=== PATIENT | male | born 1990 | race Caucasian/White ===

== ENCOUNTER 2022-11-18 14:45 | Inpatient (IN) | payer SELFPAY ==
--- NOTE | 2022-11-18 14:50 | ED.C_ITS ---
HPI - Psych General: Chief Complaint: Psychiatric Symptoms Stated Complaint: depression Time Seen by Provider: 11/18/22 14:49 History of Present Illness: Mr Noyola is a 32-year-old gentleman with history of apparently depression and longstanding history of alcohol abuse presenting the emergency department for worsening depression. He drinks between a sixpack and a fifth/day. He was last in rehab about 3 months ago however immediately started drinking after he checked himself out. He reports increased social stressors. His has left him and took the kids. He describes chronic feeling of hopelessness and just wanting everything to be over. He denies specific suicidal or homicidal ideation however certainly has a significant degree of passive thoughts. Denies actual attempts at self injury. No other specific changes in health, exacerbating, or alleviating factors identified. History of same: Yes Context: recent alcohol abuse Associated psychiatric symptoms: depression and other Review of Systems General: Reports: 10 or more systems reviewed and unremarkable except in HPI and below PFSH ED PFSH: Medical History Alcohol abuse Social History (Updated 11/18/22 @ 15:06 by Fermin Soriano MD) Alcohol intake: current Physical Exam Const: COMMON NORMALS: alert GENERAL APPEARANCE: cooperative and well developed HENMT: COMMON NORMALS: normocephalic and atraumatic HEAD & SCALP: normocephalic and atraumatic THROAT: posterior oropharynx normal Eye: COMMON NORMALS: conjunctivae normal CONJUNCTIVA: Yes conjunctivae normal SCLERA: sclerae normal Neck/C-Spine: COMMON NORMALS: supple GENERAL: Yes trachea midline Resp: COMMON NORMALS: clear to auscultation bilaterally EFFORT & INSPECTION: Yes able to speak in complete sentences AUSCULTATION: clear to auscultation bilaterally Cardio: COMMON NORMALS: regular rate and regular rhythm RATE: regular rate RHYTHM: regular rhythm GI: COMMON NORMALS: Soft to palpation PALPATION: Yes Soft to palpation and No Tenderness to palpation present (GI) Extremity: GENERAL: Yes normal exam except as noted and No edema Neuro: COMMON NORMALS: moves all extremities SENSORIUM/ORIENTATION: Yes alert and No Orientation impaired Psych: MOOD & AFFECT: Yes depressed mood and Yes tearful Course Vital Signs: Vital signs: Vital Signs Temperature 98.4 F 11/19/22 14:32 Pulse Rate 101 H 11/19/22 14:32 Respiratory Rate 16 11/19/22 14:32 Blood Pressure 136/85 11/19/22 14:32 Pulse Oximetry 98 11/19/22 14:32 Oxygen Delivery Me thod Room Air 11/18/22 22:00 MDM - Psych Medical Decision Making 32-year-old male presenting with alcohol use and depression. He is tearful and depressed. The is not cooperative answering questions at times including that he will not deny or endorse suicidal ideation. Labs with likely hemoconcentration. Alcohol level elevated. No indication for imaging. Patient placed on 96-hour hold. He endorses not wanting to live and longstanding history of emotional pain. He feels hopeless. He has had increased social stressors regarding relationship. He also endorses recent alcohol abuse as well as longstanding history of chronic alcohol abuse. These factors increase patient's risk for self-harm with lethality. Based on ED evaluation at this point there is no obvious condition that would preclude the patient from inpatient management of psychiatric concerns/symptoms. Discussed with psychiatry service and patient admitted under 96-hour hold. Medical Records I reviewed the patient's medical records. Lab Data I reviewed the patient's lab results. 11/18/22 15:41 11/18/22 15:41 Laboratory Results WBC 10.2 10^3/uL (4.0-10.0) H 11/18/22 15:41 RBC 6.29 10^6/uL (4.1-5.3) H 11/18/22 15:41 Hgb 19.7 g/dL (11.7-16.6) H 11/18/22 15:41 Hct 56.6 % (42.0-52.0) H 11/18/22 15:41 MCV 90.0 fl (80-94) 11/18/22 15:41 MCH 31.3 pg (28.0-34.0) 11/18/22 15:41 MCHC 34.8 g/dL (30.0-36.0) 11/18/22 15:41 RDW 13.9 % (12.1-15.1) 11/18/22 15:41 Plt Count 327 10^3/cmm (130-400) 11/18/22 15:41 MPV 9.7 fL (7.4-10.4) 11/18/22 15:41 Neut % (Auto) 60.5 % 11/18/22 15:41 Lymph % (Auto) 31.6 % 11/18/22 15:41 [place] % (Auto) 6.1 % 11/18/22 15:41 Eos % (Auto) 0.8 % 11/18/22 15:41 Baso % (Auto) 0.6 % 11/18/22 15:41 Neut # (Auto) 6.16 10^3/uL (1.8-7.7) 11/18/22 15:41 Lymph # (Auto) 3.2 10^3/uL (0.8-4.8) 11/18/22 15:41 [place] # (Auto) 0.6 10^3/uL (0.2-0.9) 11/18/22 15:41 Eos # (Auto) 0.1 10^3/uL (0.0-0.8) 11/18/22 15:41 Baso # (Auto) 0.1 10^3/uL (0.0-0.1) 11/18/22 15:41 Nucleated RBC % (auto) 0 % 11/18/22 15:41 Nucleated RBCs # 0.0 /100WBC 11/18/22 15:41 Sodium 142 mmol/L (136-145) 11/18/22 15:41 Potassium 4.1 mmol/L (3.5-5.1) 11/18/22 15:41 Chloride 101 mmol/L (98-107) 11/18/22 15:41 Carbon Dioxide 25 mmol/L (22-29) 11/18/22 15:41 Anion Gap 20.1 (5-19) H 11/18/22 15:41 BUN 7 mg/dL (6-20) 11/18/22 15:41 Creatinine 0.8 mg/dL (0.7-1.2) 11/18/22 15:41 GFR Calculation 110.7 mL/min (90-130) 11/18/22 15:41 Glucose 92 mg/dL (65-115) 11/18/22 15:41 Calculated Osmolality 292 mOsm/kg (285-295) 11/18/22 15:41 Calcium 9.1 mg/dL (8.5-10.5) 11/18/22 15:41 Total Bilirubin 0.4 mg/dL (0.15-1.2) 11/18/22 15:41 AST 16 U/L (0-40) 11/18/22 15:41 ALT 19 U/L (0-41) 11/18/22 15:41 Alkaline Phosphatase 85 U/L (40-130) 11/18/22 15:41 Total Protein 7.5 g/dL (6.6-8.7) 11/18/22 15:41 Albumin 4.8 g/dL (3.5-5.2) 11/18/22 15:41 Globulin 2.7 g/dL (1.3-4.6) 11/18/22 15:41 TSH 0.92 uIU/mL (0.27-4.20) 11/18/22 15:41 Salicylates 0.8 mg/dL (3-10) L 11/18/22 15:41 Acetaminophen < 5.0 ug/mL (10-30) L 11/18/22 15:41 Ethyl Alcohol 149 mg/dL (0-10) H 11/18/22 15:41 Discharge Plan Discharge Patient Disposition: Admitted As Inpatient Admit Provider: Ori Sampson Clinical Impression: Alcohol abuse, Depression, Suicidal ideation Condition: Stable Discharge Diet: Usual diet Discharge Activity: Resume usual activity Coding Level of Care Code ED [employer] Central Office for Fermin Stearns
[2022-11-18 14:53] VITALS: BP 161/106; PULSE 95; TEMP 36.9; O2SAT 99
[2022-11-18] MEDS: nicotine 14 mg Patch 1 PATCH TRANSDERMA (15:01)
[2022-11-18] MEDS: LORazepam 0.5 mg Tablet PO (15:33)
--- NOTE | 2022-11-18 15:50 | PC.NURSE ---
when attempting to complete suicide risk assessment PT will not answer questions and remain silent
[2022-11-18 15:52] LABS: Basophils # 0.1 10^3/uL (0.0-0.1); Basophils % 0.6 %; Eosinophils # 0.1 10^3/uL (0.0-0.8); Eosinophils % 0.8 %; Hematocrit 56.6 % (42.0-52.0); Hemoglobin 19.7 g/dL (11.7-16.6); Lymphocytes # 3.2 10^3/uL (0.8-4.8); Lymphocytes % 31.6 %; Mean Corpuscular HGB Conc 34.8 g/dL (30.0-36.0); Mean Corpuscular Hemoglobin 31.3 pg (28.0-34.0); Mean Platelet Volume 9.7 fL (7.4-10.4); Monocytes # 0.6 10^3/uL (0.2-0.9); Monocytes % 6.1 %; Neutrophils # 6.16 10^3/uL (1.8-7.7); Neutrophils % 60.5 %; Nucleated Red Blood Cells % 0 %; Platelet Count 327 10^3/cmm (130-400); Red Blood Count 6.29 10^6/uL (4.1-5.3); Red Cell Distribution Width 13.9 % (12.1-15.1); White Blood Count 10.2 10^3/uL (4.0-10.0)
[2022-11-18 16:26] LABS: Alanine Aminotransferase 19 U/L (0-41); Albumin Level 4.8 g/dL (3.5-5.2); Alcohol Level 149 mg/dL (0-10); Alkaline Phosphatase 85 U/L (40-130); Anion Gap 20.1 (5-19); Aspartate Amino Transferase 16 U/L (0-40); Blood Urea Nitrogen 7 mg/dL (6-20); Calcium 9.1 mg/dL (8.5-10.5); Carbon Dioxide 25 mmol/L (22-29); Chloride 101 mmol/L (98-107); Globulin 2.7 g/dL (1.3-4.6); Glomerular Filtration Rate 110.7 mL/min (90-130); Glucose 92 mg/dL (65-115); Osmolality Calculated 292 mOsm/kg (285-295); Potassium 4.1 mmol/L (3.5-5.1); Salicylate 0.8 mg/dL (3-10); Sodium 142 mmol/L (136-145); Thyroid Stimulating Hormone 0.92 uIU/mL (0.27-4.20); Total Bilirubin 0.4 mg/dL (0.15-1.2); Total Protein 7.5 g/dL (6.6-8.7)
[2022-11-18 16:31] LABS: Acetaminophen < 5.0 ug/mL (10-30)
--- NOTE | 2022-11-18 16:41 | PC.NURSE ---
96 hr rights read to patient in with presence of [facility] master deputy sheriff court security Benny @1600. Patient was unhappy with decision to 96 him, and stated he would leave by force if warranted. Demanded that Blood Bank Order Control Clerk and ER staff allow for him to leave hospital facility to walk across road to smoke a cigarette. Dr Soriano came to bedside to further explain that he is now under a hold and would not be allowed to leave facility. Patient refused to take 96 hr personal rights paper from Blood Bank Order Control Clerk. Copy was left at bedside with patient for his readiness at a later time. Nicotine lozenge order requested by Blood Bank Order Control Clerk for patient. Dr Soriano placed orders for administration.
[2022-11-18 18:05] VITALS: BP 142/87; PULSE 86; RESP 18; O2SAT 96
[2022-11-18] MEDS: LORazepam 2 mg Tablet PO ×2 (18:36→20:55)
[2022-11-18] MEDS: nicotine 2 mg Gum BUCCAL ×3 (18:36→22:35)
--- NOTE | 2022-11-18 18:47 | PC.NURSE ---
Ativan 2mg given to patient per CIWA protocol. score of 17
[2022-11-18] MEDS: ondansetron 4 MG Tablet PO (20:21)
[2022-11-18 22:00] VITALS: BP 135/89; PULSE 93; RESP 17; TEMP 36.8; O2SAT 95
[2022-11-19] MEDS: LORazepam 2 mg Tablet PO ×4 (00:03→14:03)
--- NOTE | 2022-11-19 03:53 | PC.NURSE ---
Patient CIWA scores this shift 14/10/0. Patient interacted appropriately with other patients on unit and was meal and medication compliant. Discussed sober living on discharge and he said he is not ready to discuss yet. Patient denies SI/HI/AVH rates anxiety 8/10 and depression 0. States that he can feel the depression coming though. Patient reports history of blacking out but no seizure activity with previous attempts to detox of ETOH.
--- NOTE | 2022-11-19 06:30 | PC.NURSE ---
Asked pt multiple times to obtain vital signs. Pt refused. Respiration Rate 17.
[2022-11-19] MEDS: nicotine 2 mg Gum BUCCAL ×3 (08:25→12:38)
[2022-11-19] MEDS: multivitamin therapeutic Tablet 1 TAB PO (08:25)
[2022-11-19] MEDS: thiamine 100 mg Tablet PO (08:25)
[2022-11-19] MEDS: folic acid 1 mg Tablet PO (08:25)
[2022-11-19] MEDS: ondansetron 4 MG Tablet PO (08:27)
[2022-11-19] MEDS: loperamide 2 mg Capsule PO (11:09)
[2022-11-19 13:46] VITALS: BP 136/85; PULSE 101; RESP 16; TEMP 36.9; O2SAT 98
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
--- NOTE | 2022-11-19 14:24 | PC.NURSE ---
Scored an 18 on CIWA assessment this afternoon. Patient visibly shaken, extremely anxious, with a headache and numbness in his extremities. Administered 2mg ativan po. Patient tolerated well and is now resting his head on the table in the dayroom. He states his anxiety was exacerbated by another patients behaviors.
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
[2022-11-19 14:32] VITALS: BP 136/85; PULSE 101; RESP 16; TEMP 36.9; O2SAT 98
== END 2022-11-19 15:02 | disposition home or self-care (01) | DRG 881 ==
LOC: ER 15:58 → NP 16:14
PROVIDERS: Admitting Provider Psychiatry & Neurology Psychiatry; Emergency Provider Emergency Medicine; Visit Provider Psychiatry & Neurology Psychiatry
DX: F43.21 Adjustment disorder with depressed mood (principal); F10.10 Alcohol abuse, uncomplicated; F41.1 Generalized anxiety disorder
CPT/HCPCS: 36415; 80053; 80307; 84443; 85025; 99238; 99285; Q0162